=== PATIENT | male | born 1985 | race African-American/Black ===

== ENCOUNTER 2024-02-14 21:02 | Inpatient (IN) | payer MEDICAID ==
[~2024-02-14] VITALS: Ht 182.9 cm; Wt 105.2 kg
[2024-02-14 22:03] LABS: BASOPHILS % 0.4 % (0.0-2.0); EOSINOPHILS % 0.7 % (0.0-5.0); HEMATOCRIT. 46.9 % (42.0-52.0); HEMOGLOBIN. 15.1 g/dL (14.0-18.0); LYMPHOCYTES % 9.8 % (20.0-50.0); MEAN CORPUSCULAR HGB CONC 32.3 g/dL (31.0-37.0); MEAN CORPUSCULAR VOLUME 83.7 fL (80.0-94.0); MEAN PLATELET VOLUME 7.8 fl (7.4-10.4); NEUTROPHILS % 78.1 % (40.0-76.0); PLATELET 192 x1000/uL (130-400); RED CELL DISTRIBUTION WIDTH 14.4 % (11.6-14.6); WHITE BLOOD COUNT 9.4 x1000/uL (4.5-11.0)
[2024-02-14 22:06] LABS: CHLORIDE 106 mEq/L (98-107); SODIUM 139 mEq/L (136-145)
[2024-02-14 22:07] LABS: CALCIUM 9.9 mg/dL (8.7-10.4); CARBON DIOXIDE 25 mEq/L (21-32)
[2024-02-14 22:12] LABS: CREATININE 1.6 mg/dL (0.6-1.3); GLUCOSE 111 mg/dL (70-105); UREA NITROGEN BLOOD 14 mg/dL (9-23)
[2024-02-14 22:15] LABS: TROPONIN I HIGH SENSITIVITY < 4 ng/L (3.0-53)
[2024-02-14 22:16] LABS: D-DIMER 1.75 mg/L FEU (<0.50)
[2024-02-15] VITALS (7 sets, daily range): BP systolic 107–136; BP diastolic 64–83; PULSE 81–101; RESP 18–20; TEMP 36.33624–37.00296; O2SAT 95–97
[2024-02-15] MEDS: AZITHROMYCIN 500MG/250ML 250 ML IV STA (00:07)
[2024-02-15] MEDS: LACTATED RINGERS 1,000 ML IV ONE (00:07)
[2024-02-15] MEDS: IBUPROFEN 600MG TABLET PO NR (00:32)
[2024-02-15] MEDS: IBUPROFEN 600MG TABLET PO STA (00:41)
[2024-02-15] MEDS: CEFTRIAXONE 1GM/50ML 50 ML IV ONE (01:39)
[2024-02-15] MEDS: CEFTRIAXONE 1GM/50ML 50 ML IV NR (02:48)
[2024-02-15 03:00] LABS: CLARITY URINE CLEAR (CLEAR); COLOR URINE YELLOW (YELLOW); GLUCOSE URINE NEGATIVE (NEGATIVE); KETONES URINE TRACE (NEGATIVE); LEUKOCYTE ESTERASE URINE NEGATIVE (NEGATIVE); NITRITE URINE NEGATIVE (NEGATIVE); OCCULT BLOOD URINE NEGATIVE (NEGATIVE); PROTEIN URINE TRACE (NEGATIVE); SPECIFIC GRAVITY URINE 1.046 (1.005-1.030)
[2024-02-15 04:22] LABS: WBC URINE 0-2 /hpf (0-2)
[2024-02-15 04:23] LABS: BACTERIA URINE TRACE; RBC URINE 0-2 /hpf (0-2); SQUAMOUS EPITHELIAL CELL URINE FEW /lpf (RARE/1+)
[2024-02-15] MEDS ORDERED: ONDANSETRON HCL 4MG/2ML INJ IV PRN (12:00)
[2024-02-15] MEDS ORDERED: IPRATROPIUM/ALBUTEROL 0.5-3(2.5)MG/3ML NEB HHN PRN (12:00)
[2024-02-15] MEDS: ACETAMINOPHEN 325MG TABLET PO PRN (13:17)
[2024-02-15 16:00] LABS: HEPATITIS B SURFACE ANTIGEN NEGATIVE (Negative)
[2024-02-15 16:21] LABS: HEPATITIS C AB NON REACTIVE (Neg) (Negative)
[2024-02-15] MEDS ORDERED: KETOROLAC 30MG/ML VIAL IV NR (16:45)
[2024-02-15] MEDS ORDERED: OLAN5TAB3 PO (19:14)
[2024-02-15] MEDS ORDERED: CARI6CAP PO (19:14)
[2024-02-15] MEDS ORDERED: METF-817 PO (19:14)
[2024-02-15] MEDS ORDERED: BUPR100T13 PO (19:14)
[2024-02-15] MEDS ORDERED: TRAZ-251 PO (19:14)
[2024-02-15] MEDS ORDERED: NALT50TA5 GT (19:14)
[2024-02-15] MEDS ORDERED: DEPER5 PO (19:14)
[2024-02-15] MEDS ORDERED: ZYDS20 PO (19:14)
[2024-02-15 22:04] LABS: *AMPHETAMINES SCREEN URINE NEGATIVE (NEGATIVE)
[2024-02-15 22:05] LABS: *BARBITURATES SCREEN URINE NEGATIVE (NEGATIVE); *BENZODIAZEPINES SCREEN URINE NEGATIVE (NEGATIVE); *COCAINE SCREEN URINE NEGATIVE (NEGATIVE); CANNABINOID URINE SCREEN NEGATIVE (NEGATIVE); ECSTASY MDMA SCREEN URINE NEGATIVE (NEGATIVE); METHADONE URINE SCREEN NEGATIVE (NEGATIVE); OPIATES URINE SCREEN NEGATIVE (NEGATIVE); PHENCYCLIDINE URINE SCREEN NEGATIVE (NEGATIVE)
[2024-02-16] VITALS: BP 135/59; PULSE 105; RESP 18; TEMP 36.78072; O2SAT 95
[2024-02-16] MEDS: AZITHROMYCIN 250 MG TABLET PO SCH (00:45)
[2024-02-16] MEDS: TRAZODONE HCL 50MG TABLET PO SCH (00:45)
[2024-02-16 00:47] LABS: CHLORIDE 105 mEq/L (98-107); POTASSIUM 4.1 mEq/L (3.5-5.1); SODIUM 137 mEq/L (136-145)
[2024-02-16 00:48] LABS: CALCIUM 9.3 mg/dL (8.7-10.4); CARBON DIOXIDE 24 mEq/L (21-32)
[2024-02-16 00:53] LABS: CREATININE 1.4 mg/dL (0.6-1.3); GLUCOSE 115 mg/dL (70-105); UREA NITROGEN BLOOD 15 mg/dL (9-23)
[2024-02-16] MEDS: CEFTRIAXONE 1GM/50ML 50 ML IV SCH (02:51)
[2024-02-16 04:00] VITALS: BP 139/88; PULSE 103; RESP 19; TEMP 36.78072; O2SAT 96
[2024-02-16 08:00] VITALS: BP 129/80; PULSE 92; RESP 18; TEMP 36.72516
[2024-02-16 12:00] VITALS: BP 133/78; PULSE 82; RESP 18; TEMP 36.72516
[2024-02-16] MEDS ORDERED: HYDR50TA55 MT (13:12)
[2024-02-16] MEDS ORDERED: CARI6CAP MT (13:47)
[2024-02-16] MEDS ORDERED: NALT50TA5 MT (13:47)
[2024-02-16] MEDS ORDERED: DIVA-75 PO (13:47)
[2024-02-16] MEDS ORDERED: OLAN20TA79 PO (13:47)
[2024-02-16] MEDS ORDERED: METF-874 MT (13:47)
[2024-02-16] MEDS ORDERED: DIVA500T3 MT (13:47)
[2024-02-16] MEDS ORDERED: OLAN5TAB74 PO (13:47)
[2024-02-16] MEDS ORDERED: TRAZ-251 MT (13:47)
[2024-02-16] MEDS ORDERED: BUPR300T52 MT (13:47)
[2024-02-16] MEDS ORDERED: CARIPRAZINE HYDROCHLORIDE 6 MG PO SCH (14:00)
[2024-02-16] MEDS ORDERED: OLANZAPINE 5MG TABLET PO PRN (14:00)
[2024-02-16] MEDS ORDERED: HYDROXYZINE 25MG TABLET PO PRN (14:00)
[2024-02-16] MEDS: BUPROPION HCL 150MG TABLET XL 24HR PO SCH (14:29)
[2024-02-16 16:00] VITALS: BP 138/82; PULSE 84; RESP 18; TEMP 36.72516
[2024-02-16 16:54] VITALS: BP 138/82; PULSE 84; TEMP 98.1; O2SAT 100
[2024-02-16] MEDS ORDERED: GUAIFENESIN 600MG ER TABLET PO SCH (21:00)
[2024-02-16] MEDS ORDERED: TRAZODONE HCL 50MG TABLET PO SCH (21:00)
[2024-02-16] MEDS ORDERED: METFORMIN HCL 500MG TABLET PO SCH (21:00)
[2024-02-16] MEDS ORDERED: DIVALPROEX SODIUM 500MG ER TABLET PO SCH (21:00)
[2024-02-16] MEDS ORDERED: NALTREXONE HCL 50MG TABLET PO SCH (21:00)
[2024-02-16] MEDS ORDERED: OLANZAPINE 5MG TABLET PO SCH (21:00)
== END 2024-02-16 17:50 | disposition home or self-care (01) | DRG 139 ==
LOC: ER 21:02 → EDBEDREQ 22:12 → 5WST 23:07 → EDBEDREQ 23:11 → EDBEDREQTM 23:11 → EDBEDREQ 23:12 → 7WST 02-15 10:40
PROVIDERS: ADMIT Internal Medicine; ATTEND Internal Medicine
DX: J18.9 Pneumonia, unspecified organism (principal); J96.01 Acute respiratory failure with hypoxia; N17.0 Acute kidney failure with tubular necrosis; Z20.822 Contact with and (suspected) exposure to COVID-19; F32.A Depression, unspecified; F17.210 Nicotine dependence, cigarettes, uncomplicated; Z79.899 Other long term (current) drug therapy
CPT/HCPCS: 36415; 71045; 71275; 76700; 80048; 80305; 81003; 83880; 84484; 85025; 85379; 86705; 87340; 87804; 93005; 99285; J0456; J0696; J7120